=== PATIENT | female | born 1935 | race Caucasian/White ===

== ENCOUNTER 2016-06-19 03:35 | Emergency (ER) | payer OTHER ==
[~2016-06-19] VITALS: Ht 152.4 cm; Wt 50.4 kg
[~2016-06-19 03:35] MED LIST: ALEVE220 M1 PO; ASPIRIN325 PO; BLOOD PRESSURE MED; CELEBREX100 MG/1 C PO; CENTRUM SILVER1 EAC2 PO; CLONAZEPAM 0.50.5 M1 PO; CLONAZEPAM 1 MG1 M1 PO; COZAAR 50 MG TA50 M2 PO; FOLIC ACID1 MG PO; GENFIBROZIL PO; LEFLUNOMIDE; LOSARTAN POTAS100 MG PO; NORVASC2.5 MG PO; OMEPRAZOLE 20 M20 M1 PO; OXYCODONE HCL 55 MG PO; PERCOCET PO; PREDNISONE 20 M20 MG PO; PROTONIX40 M1 PO; VITAMIN B-12500 MCG PO; VITAMINC500 PO; VOLTAREN GEL 1100 G1 TOP; VOLTAREN GEL 1100 G2 TOP; WELLBUTRIN 75 M75 M1 PO
[2016-06-19] MEDS ORDERED: NORCO 5-325 TA1 EACH PO (05:17)
[2016-06-19 07:24] VITALS: BP 161/72
== END 2016-06-19 07:25 | disposition home or self-care (01) ==
LOC: ER 03:35
DX: R42 Dizziness and giddiness (principal); F41.9 Anxiety disorder, unspecified; I10 Essential (primary) hypertension; Z88.0 Allergy status to penicillin; W06.XXXA Fall from bed, initial encounter; Y93.84 Activity, sleeping; Y92.9 Unspecified place or not applicable; Y99.9 Unspecified external cause status